=== PATIENT | female | born 1965 | race Caucasian/White ===

== ENCOUNTER 2017-07-08 21:34 | Emergency (ER) | payer SELFPAY ==
[~2017-07-08] VITALS: Ht 175.3 cm; Wt 64.0 kg
[2017-07-08 21:38] VITALS: BP 130/90
== END 2017-07-08 23:20 | disposition left against medical advice (07) ==
LOC: ER 21:45
DX: Z00.8 Encounter for other general examination (principal)
CPT/HCPCS: 99284; Z7610